=== PATIENT | female | born 1975 | race Caucasian/White ===

== ENCOUNTER 2019-04-08 09:44 | Emergency (ER) | payer OTHER ==
[~2019-04-08] VITALS: Ht 154.9 cm; Wt 68.2 kg
[~2019-04-08 09:44] MED LIST: AMOXIL400 MG/52 PO
[2019-04-08] MEDS ORDERED: CYCLOBENZAPR5 MG PO (09:57)
[2019-04-08] MEDS ORDERED: METHYLPRED4 MG PO (09:57)
[2019-04-08 13:02] LABS: HEMATOCRIT 42.9 % (37.0-47.0); HEMOGLOBIN 14.5 g/dl (12.0-16.0); IMMATURE GRANULOCYTES 0.7 % (0.0-5.0); MEAN CELL VOLUME 93.7 fL CALC (80.0-100.0); MEAN CORPUSCULAR HGB 31.7 pG CALC (26.0-32.0); MEAN CORPUSCULAR HGB CONC 33.8 g/L CALC (32.0-36.0); NEUT# 15.33 thou/uL (2.00-7.15); RED BLOOD COUNT 4.58 mill/uL (4.20-5.60); RED CELL DISTRI WIDTH 12.3 % (11.5-15.5)
[2019-04-08 13:04] LABS: URINE BILIRUBIN - DIPSTICK NEGATIVE (NEGATIVE); URINE BLOOD DIPSTICK TRACE-INTACT (NEGATIVE); URINE COLOR YELLOW; URINE GLUCOSE - DIPSTICK NEGATIVE (NEGATIVE); URINE KETONE NEGATIVE (NEGATIVE); URINE LEUK ESTERASE NEGATIVE (NEGATIVE); URINE NITRITE - DIPSTICK NEGATIVE (Negative); URINE PROTEIN - DIPSTICK NEGATIVE (NEG-TRACE); URINE SPECIFIC GRAVITY <=1.005; URINE UROBILINOGEN - DIPSTICK 0.2 E.U./dL (0.2)
[2019-04-08 13:11] LABS: ALBUMIN 4.4 g/dL (3.2-5.0); ALKALINE PHOSPHATASE 91 u/l (38-126); ANION GAP 15 (6-22 (CALC)); BILIRUBIN, TOTAL 0.4 mg/dL (0.0-1.4); BUN 9 mg/dL (7-17); BUN/CREATININE RATIO 13 (12-20 (CALC)); CARBON DIOXIDE 26 mmol/l (22-30); CHLORIDE 104 mmol/l (95-108); CREATININE 0.7 mg/dL (0.5-1.0); GFR > 60 ML/MIN (>=60 (CALC)); GFR FOR AFR.AMER. > 60 ML/MIN (>=60 (CALC)); POTASSIUM 4.2 mmol/l (3.5-5.1); SGOT/AST 15 u/l (14-36); SODIUM 141 mmol/l (137-146); TOTAL PROTEIN 7.4 g/dL (6.3-8.2)
[2019-04-08] MEDS ORDERED: AMOX/K CLAV875 M1 PO (14:15)
[2019-04-08] MEDS ORDERED: FIORICET PO (14:15)
[2019-04-08 14:28] VITALS: BP 140/84
== END 2019-04-08 14:29 | disposition home or self-care (01) | DRG 103 ==
LOC: ED 09:44
DX: R51 Headache (principal); J32.9 Chronic sinusitis, unspecified; S46.911A Strain of unspecified muscle, fascia and tendon at shoulder and upper arm level, right arm, initial encounter; F17.210 Nicotine dependence, cigarettes, uncomplicated; X58.XXXA Exposure to other specified factors, initial encounter

== ENCOUNTER 2024-09-07 10:59 | Emergency (ER) | payer BC ==
[~2024-09-07] VITALS: Ht 154.9 cm; Wt 67.0 kg
[2024-09-07] VITALS (18 sets, daily range): BP systolic 105–129; BP diastolic 51–86
[~2024-09-07 10:59] MED LIST changes: +AMOX/K CLAV875 M1 PO; +CYCLOBENZAPR5 MG PO; +FIORICET PO; +METHYLPRED4 MG PO
[2024-09-07] MEDS ORDERED: LISINOPRIL5 MG PO (11:10)
[2024-09-07] MEDS ORDERED: KETOROLAC TROMETHAMINE 30 MG/ML SDV IV STA (11:26)
[2024-09-07] MEDS ORDERED: ONDANSETRON HCl 4 MG/2 ML SDV IV STA (11:26)
[2024-09-07 11:51] LABS: URINE BLOOD DIPSTICK Negative (NEGATIVE); URINE GLUCOSE - DIPSTICK Negative (NEGATIVE); URINE KETONE >=160 mg/dL (NEGATIVE); URINE LEUK ESTERASE Negative (NEGATIVE); URINE NITRITE - DIPSTICK Negative (Negative); URINE PROTEIN - DIPSTICK Negative (NEG-TRACE); URINE SPECIFIC GRAVITY 1.025
[2024-09-07 11:51] LABS: BASO% 0.3 % (0-3); EOS% 0.9 % (0-8); HEMATOCRIT 48.2 % (37.0-47.0); HEMOGLOBIN 16.2 g/dl (12.0-16.0); IMMATURE GRANULOCYTES 0.6 % (0.0-5.0); LYMPH% 17.5 % (15-41); MEAN CELL VOLUME 93.8 fL CALC (80.0-100.0); MEAN CORPUSCULAR HGB 31.5 pG CALC (26.0-32.0); MEAN CORPUSCULAR HGB CONC 33.6 g/dL CAL (32.0-36.0); MONO% 8.1 % (2-13); NEUT# 13.03 thou/uL (2.00-7.15); NEUT% 72.6 % (42-76); RED BLOOD COUNT 5.14 mill/uL (4.20-5.60); RED CELL DISTRI WIDTH 12.3 % (11.5-15.5)
[2024-09-07 11:55] LABS: URINE COLOR Yellow
[2024-09-07 12:04] LABS: ALBUMIN 5.1 g/dL (3.2-5.0); CREATININE 0.8 mg/dL (0.5-1.0); TOTAL PROTEIN 8.8 g/dL (6.3-8.2)
[2024-09-07] MEDS ORDERED: SODIUM CHLORIDE 0.9% 1,000 ML IV ONE ×2 (12:25→14:20)
[2024-09-07] MEDS ORDERED: MORPHINE SULFATE 4 MG/ML VIAL IV ONE (12:30)
[2024-09-07] MEDS ORDERED: MORPHINE SULFATE 4 MG/ML VIAL IV STA (14:04)
[2024-09-07] MEDS ORDERED: PIPERACILLIN Sodium-Tazobactam 3.375 GM in SODIUM CHLORIDE 0.9% 100 ML IV ONE (14:20)
== END 2024-09-07 16:51 | DRG 761 ==
LOC: ED 10:59
PROVIDERS: Family Medicine
DX: N83.202 Unspecified ovarian cyst, left side (principal); I10 Essential (primary) hypertension; Z72.0 Tobacco use
CPT/HCPCS: J2405; J2543; Q9967